=== PATIENT | male | born 1965 | race African-American/Black ===

== ENCOUNTER 2023-10-11 13:28 | Outpatient (AMB) | payer MEDICAID, SELFPAY ==
--- NOTE | 2023-10-11 13:39 | HO.NEPHOV ---
HPI HPI Comments History of Present Illness Details I had the privilege of seeing Yimi in consultation for his chronic kidney disease and hypertension. He is known to be hypertensive for a long time and had been on multiple various blood pressure lowering medications.He had been on lisinopril in the past which was discontinued due to reasons unclear to him. He has history of intermittent cocaine use, sometimes in binge, last being 3 months ago. Recently serum creatinine was found to be 1.66. He is not a diabetic. he denies any history of coronary artery disease, congestive heart failure, CVA, carotid stenosis, peripheral arterial disease, renal artery stenosis or any other systemic complaints. He used to take nonsteroidals in the past but has not taken any for a long time. He denies epistaxis, photosensitivity, skin rashes, joint swellings, hematuria, frequency or pedal edema. He claims to be compliant with his blood pressure lowering medications. He has dyslipidemia and is on statins. He does not have any muscle pain or any history of rhabdomyolysis. He he denied any other intravenous drug use, history of hepatitis or HIV. He denied any history of retinopathy or proteinuria. [facility] Medical History (Updated 10/11/23 @ 14:14 by Trevor Samson MD) Chronic kidney disease, stage 4 (severe) Hypertension Surgical History (Updated 10/11/23 @ 13:44 by Jocelynn Santos MA) History of eye surgery Family History (Updated 10/11/23 @ 13:45 by Jocelynn Santos MA) Father Hypertension Mother Cancer Social History (Updated 10/11/23 @ 13:44 by Jocelynn Santos MA) Alcohol intake: never Patient Tobacco Use Status: Former Tobacco user Vital Signs 10/11/23 13:40 Height 5 ft 10 in Weight 183 lb 6 oz BMI 26.3 BP 160/60 H Blood Pressure Location Lt brachial Position Sitting Pulse 86 Pulse Source Pulse Oximeter Pulse Oximetry (%) 97 Oxygen Delivery Method Room Air Physical Exam Vital Signs: Last Vital Signs Pulse 86 10/11/23 13:40 BP 160/60 H 10/11/23 13:40 Pulse Ox 97 10/11/23 13:40 Oxygen Delivery Method Room Air 10/11/23 13:40 BMI result Body Mass Index 26.3 Const General: comfortable and no acute distress Orientation/consciousness: patient oriented x3 HEENT Head: Yes normocephalic Mouth: Normal oral and palatal mucosa present Eyes EOM: EOMs intact bilaterally Neck Neck: Yes supple Resp Auscultation: clear to auscultation bilaterally Cardio Jugular venous distension: no JVD Rate: regular rate GI Palpation (GI): Soft to palpation Auscultation: normal bowel sounds General: Yes no CVA tenderness Back/Spine/Pelvis Back: no CVA tenderness Skin General skin exam: no rashes or lesions noted Neuro General: patient oriented x3 and moves all extremities Extrem General: Yes no pedal edema Assessment & Plan Assessment & Plan (1) CKD (chronic kidney disease) stage 3, GFR 30-59 ml/min: Code(s): N18.30 - Chronic kidney disease, stage 3 unspecified Qualifiers: Chronic kidney disease stage 3 subtype: stage 3a (GFR 45-59) Qualified Code(s): N18.31 - Chronic kidney disease, stage 3a (2) Hypertension: Code(s): I10 - Essential (primary) hypertension Qualifiers: Hypertension type: primary hypertension Qualified Code(s): I10 - Essential (primary) hypertension Plan Yimi has CKD stage 3 most likely due to longstanding hypertension and his long history of intermittent cocaine use( sometimes in binge). He might have had mild recurrent ROBIN from cocaine use with resultant drop in GFR. He has not known to have any proteinuria. Looking back in her records his serum creatinine had been high for some time and is currently stable. He was on ALBERT inhibitor which was discontinued and was initiated on nifedipine by other physicians. I have ordered imaging studies and further workup. He should abstain from cocaine. I will consider putting him back on angiotensin receptor john with time. His blood pressure needs to be maintain a goal. I have also ordered ANCA given history of cocaine use. All these have been discussed in detail. Further management is pending evolving data. All questions answered. Follow-up given Orders: Orders Calcium 10/11/23 I10 - Essential (primary) hypertension, N18.30 - Chronic kidney disease, stage 3 unspecified Vitamin D 25-OH Total 10/11/23 I10 - Essential (primary) hypertension, N18.30 - Chronic kidney disease, stage 3 unspecified Parathyroid Hormone Intact 10/11/23 I10 - Essential (primary) hypertension, N18.30 - Chronic kidney disease, stage 3 unspecified Neutrophil Cytoplasma Ab 10/11/23 I10 - Essential (primary) hypertension, N18.30 - Chronic kidney disease, stage 3 unspecified Myeloperoxidase Antibody 10/11/23 I10 - Essential (primary) hypertension, N18.30 - Chronic kidney disease, stage 3 unspecified Proteinase 3 PR3 Antibodies 10/11/23 I10 - Essential (primary) hypertension, N18.30 - Chronic kidney disease, stage 3 unspecified Complement C3 10/11/23 I10 - Essential (primary) hypertension, N18.30 - Chronic kidney disease, stage 3 unspecified Phospholipase A2 Receptor Pnl 10/11/23 I10 - Essential (primary) hypertension, N18.30 - Chronic kidney disease, stage 3 unspecified Prothrombin Time INR 10/11/23 I10 - Essential (primary) hypertension, N18.30 - Chronic kidney disease, stage 3 unspecified Hepatitis B Surface Antigen 10/11/23 I10 - Essential (primary) hypertension, N18.30 - Chronic kidney disease, stage 3 unspecified Hepatitis B Core Antibody 10/11/23 I10 - Essential (primary) hypertension, N18.30 - Chronic kidney disease, stage 3 unspecified Hepatitis C Antibody Reflex 10/11/23 I10 - Essential (primary) hypertension, N18.30 - Chronic kidney disease, stage 3 unspecified Electrolytes 10/11/23 I10 - Essential (primary) hypertension, N18.30 - Chronic kidney disease, stage 3 unspecified Phosphorus 10/11/23 I10 - Essential (primary) hypertension, N18.30 - Chronic kidney disease, stage 3 unspecified MYRA Reflex Titer and Pattern 10/11/23 I10 - Essential (primary) hypertension, N18.30 - Chronic kidney disease, stage 3 unspecified Anti DNA DS Antibody 10/11/23 I10 - Essential (primary) hypertension, N18.30 - Chronic kidney disease, stage 3 unspecified Anti Glomerular Basement Memb 10/11/23 I10 - Essential (primary) hypertension, N18.30 - Chronic kidney disease, stage 3 unspecified Complement C4 10/11/23 I10 - Essential (primary) hypertension, N18.30 - Chronic kidney disease, stage 3 unspecified Immunofixation Pnl, Serum 10/11/23 I10 - Essential (primary) hypertension, N18.30 - Chronic kidney disease, stage 3 unspecified Complete Blood Count Auto Diff 10/11/23 I10 - Essential (primary) hypertension, N18.30 - Chronic kidney disease, stage 3 unspecified Hepatitis B Surface Antibody 10/11/23 I10 - Essential (primary) hypertension, N18.30 - Chronic kidney disease, stage 3 unspecified Blood Urea Nitrogen 10/11/23 I10 - Essential (primary) hypertension, N18.30 - Chronic kidney disease, stage 3 unspecified Creatinine 10/11/23 I10 - Essential (primary) hypertension, N18.30 - Chronic kidney disease, stage 3 unspecified US renal BI 10/11/23 I10 - Essential (primary) hypertension, N18.30 - Chronic kidney disease, stage 3 unspecified Coding Level of Care Code New Pt Level 4 (32057) Diagnoses Stage 3a chronic kidney disease N18.31 Chronic kidney disease stage 3 subtype: stage 3a (GFR 45-59) Primary hypertension I10 Hypertension type: primary hypertension Results Reviewed Nephrology Results: No Data to Display
[2023-10-11 13:40] VITALS: BP 160/60; PULSE 86; O2SAT 97; BMI 26.3
== END 2023-10-11 14:19 | disposition home or self-care (01) ==
PROVIDERS: PCP Nurse Practitioner Family; Visit Provider Internal Medicine Nephrology
DX: N18.31 Chronic kidney disease, stage 3a (principal); I10 Essential (primary) hypertension
CPT/HCPCS: 99204

== ENCOUNTER → 2023-10-11 13:28 | Outpatient (BNVA) | payer MEDICAID, SELFPAY | PROVIDERS: PCP Nurse Practitioner Family; Visit Provider Internal Medicine Nephrology | DX: I12.9 Hypertensive chronic kidney disease with stage 1 through stage 4 chronic kidney disease, or unspecified chronic kidney disease (principal); N18.31 Chronic kidney disease, stage 3a; F14.90 Cocaine use, unspecified, uncomplicated | CPT/HCPCS: 99202 ==

== ENCOUNTER 2023-11-06 09:30 | Outpatient (REF) | payer MEDICAID, SELFPAY ==
[2023-11-06 12:38] LABS: MANUAL DIFF FLAG NO
[2023-11-06 12:46] LABS: Basophils Percent Auto 0.6 % (0-2); Eosinophils Absolute Auto 0.3 X10*3/uL (0.0-0.4); Eosinophils Percent Auto 4.3 % (0-4); Hematocrit 41.6 % (42.0-52.0); Imm Gran Abs Auto 0.01 X10*3/uL (0.00-0.03); Imm Gran Pct Auto 0.1 % (0.0-0.4); Lymphocytes Absolute Auto 2.6 X10*3/uL (1.2-4.9); Lymphocytes Percent Auto 37.4 % (20-40); Mean Corpuscular HGB Conc 33.7 g/dl (31.0-36.0); Mean Corpuscular Hemoglobin 27.7 pg (27.0-33.0); Mean Corpuscular Volume 82.4 fL (80.0-98.0); Mean Platelet Volume 9.5 fL (9.4-12.4); Monocytes Absolute Auto 0.6 X10*3/uL (0.1-1.2); Monocytes Percent Auto 7.8 % (2-11); Neutrophils Absolute Auto 3.5 x10*3/uL (2.0-8.3); Neutrophils Percent Auto 49.8 % (45-73); Platelet Count 336 X10*3/uL (160-400); Red Blood Count 5.05 X10*6/uL (4.60-5.80); Red Cell Distribution Width 14.8 % (11.0-16.0); White Blood Count 7.1 X10*3/uL (4.8-10.8)
[2023-11-06 12:57] LABS: INTERNATIONAL NORM RATIO 0.9 (0.9-1.1); Prothrombin Time 11.2 SEC (11.1-13.3)
[2023-11-06 15:52] LABS: Anion Gap 12 (12-20); Blood Urea Nitrogen 14 mg/dL (9-16); Calcium 9.9 mg/dL (8.4-10.2); Carbon Dioxide 28 mmol/L (22-29); Chloride 104 mmol/L (96-108); Estimated Glomerular Filt Rate 43; Phosphorus 2.6 mg/dL (2.7-4.5); Potassium 3.8 mmol/L (3.3-5.1); Sodium 140 mmol/L (135-145)
[2023-11-06 16:10] LABS: Vitamin D 25-OH Total 14.1 ng/mL (>30)
[2023-11-07 05:43] LABS: Parathyroid Hormone Intact 82.4 pg/mL (8.7-77.1)
[2023-11-07 08:26] LABS: HBS Num1 0.02 mIU/mL (0-7.99); HBsAGNum1 0.43 S/CO (0.00-0.99); Hepatitis B Core Antibody Nonreactive (Nonreactive); Hepatitis B Surface Antigen Negative (Negative); ~HepC Num1 0.18 S/CO (0.00-0.79); ~Hepatitis B Surface Antibody NONREACTIVE (Nonreactive); ~Hepatitis C Antibody Nonreactive (Nonreactive)
[2023-11-07 16:30] LABS: Complement C3 158 mg/dL (82-185)
[2023-11-08 12:58] LABS: Anti DNA DS Antibody <1 IU/mL; Anti Glomerular Basement Memb <1.0 AI; Myeloperoxidase Antibody <1.0 AI; Proteinase 3 PR3 Antibodies <1.0 AI
[2023-11-09 08:24] LABS: IgA <5 mg/dL (47-310); IgG 1852 mg/dL (600-1640); IgM 114 mg/dL (50-300)
[2023-11-12 15:53] LABS: Neutrophil Cyto Ab Screen NEGATIVE (NEGATIVE)
[2023-11-14 08:33] LABS: Anti Nuclear Antibody Screen NEGATIVE (NEGATIVE)
[2023-11-15 21:58] LABS: Phospholipase A2 IgG ELISA <4 RU/mL; Phospholipase A2 IgG IFA NEGATIVE (NEGATIVE)
== END 2023-11-06 09:31 | disposition home or self-care (01) ==
LOC: HO.HKASLDS 09:30
PROVIDERS: Visit Provider Internal Medicine Nephrology
DX: I12.9 Hypertensive chronic kidney disease with stage 1 through stage 4 chronic kidney disease, or unspecified chronic kidney disease (principal); N18.30 Chronic kidney disease, stage 3 unspecified
CPT/HCPCS: 36415; 80051; 82306; 82310; 82565; 82784; 83520; 83970; 84100; 84520; 85025; 85610; 86021; 86036; 86038; 86160; 86225; 86255; 86334; 86704; 86706; 86803; 87340

== ENCOUNTER 2023-11-07 13:08 | Outpatient (REF) | payer MEDICAID, SELFPAY ==
[2023-11-08 04:41] LABS: HBS Num1 0.25 mIU/mL (0-7.99); HBc Num1 0.09 S/CO (0.00-0.79); HBsAGNum1 0.45 S/CO (0.00-0.99); Hepatitis B Core Antibody Nonreactive (Nonreactive); Hepatitis B Surface Antigen Negative (Negative); ~HepC Num1 0.16 S/CO (0.00-0.79); ~Hepatitis B Surface Antibody NONREACTIVE (Nonreactive); ~Hepatitis C Antibody Nonreactive (Nonreactive)
== END 2023-11-07 13:09 | disposition home or self-care (01) ==
LOC: HO.HKASLDS 13:08
PROVIDERS: Visit Provider Internal Medicine Nephrology
DX: I12.9 Hypertensive chronic kidney disease with stage 1 through stage 4 chronic kidney disease, or unspecified chronic kidney disease (principal); N18.30 Chronic kidney disease, stage 3 unspecified
CPT/HCPCS: 36415; 86704; 86706; 86803; 87340

== ENCOUNTER 2023-11-07 13:39 | Outpatient (REF) | payer MEDICAID, SELFPAY ==
--- NOTE | ~2023-11-07 | US_ITS ---
EXAMINATION: US RETROPERITONEAL LIMITED (RENAL ONLY) CLINICAL INFORMATION: CKG stage III. COMPARISON: None available. TECHNIQUE: Ultrasound of the kidneys was performed. FINDINGS: RIGHT KIDNEY: 11.2 x 5.8 x 5.9 cm (SAG x AP x TRV) for a volume of 203 mL. The kidney is normal in size, contour, and echogenicity. Renal cortical thickness is normal. No calculi or focal parenchymal lesions. No hydronephrosis. LEFT KIDNEY: 11.0 x 4.3 x 4.8 cm (SAG x AP x TRV) for a volume of 119 mL. The kidney is normal in size, contour, and echogenicity. Renal cortical thickness is normal. No calculi or focal parenchymal lesions. No hydronephrosis. US/US renal BI IMPRESSION: Normal-appearing kidneys, although the left appears of smaller volume when compared to the right.
== END 2023-11-07 13:40 | disposition home or self-care (01) ==
LOC: HO.HMGCX 13:39
PROVIDERS: PCP Nurse Practitioner Family; Visit Provider Internal Medicine Nephrology
DX: I12.9 Hypertensive chronic kidney disease with stage 1 through stage 4 chronic kidney disease, or unspecified chronic kidney disease (principal); N18.30 Chronic kidney disease, stage 3 unspecified
CPT/HCPCS: 36415; 76775; 86704; 86706; 86803; 87340

== ENCOUNTER → 2023-11-08 16:00 | Outpatient (BNVA) | payer MEDICAID, SELFPAY | PROVIDERS: PCP Nurse Practitioner Family; Visit Provider Internal Medicine Nephrology ==

== ENCOUNTER 2023-12-04 10:53 | Outpatient (AMB) | payer MEDICAID, SELFPAY ==
--- NOTE | 2023-12-04 11:05 | HO.NEPHOV ---
HPI HPI Comments History of Present Illness Details I had the privilege of seeing Yimi in follow up for his chronic kidney disease and hypertension. He is known to be hypertensive for a long time and had been on multiple various blood pressure lowering medications.He had been on lisinopril in the past which was discontinued due to reasons unclear to him. He has history of intermittent cocaine use, sometimes in binge. Recently serum creatinine was found to be 1.65. He is not a diabetic. he denies any history of coronary artery disease, congestive heart failure, CVA, carotid stenosis, peripheral arterial disease, renal artery stenosis or any other systemic complaints. He used to take nonsteroidals in the past but has not taken any for a long time. He denies epistaxis, photosensitivity, skin rashes, joint swellings, hematuria, frequency or pedal edema. He claims to be compliant with his blood pressure lowering medications. He has dyslipidemia and is on statins. He does not have any muscle pain or any history of rhabdomyolysis. He he denied any other intravenous drug use, history of hepatitis or HIV. He denied any history of retinopathy or proteinuria. [facility] Medical History (Updated 10/11/23 @ 14:14 by Trevor Samson MD) Chronic kidney disease, stage 4 (severe) Hypertension Surgical History History of eye surgery Family History Father Hypertension Mother Cancer Social History Alcohol intake: never Patient Tobacco Use Status: Former Tobacco user Vital Signs 12/04/23 11:06 Height 5 ft 10 in Weight 181 lb 8 oz BMI 26.0 BP 120/70 Blood Pressure Location Lt brachial Position Sitting Pulse 99 Pulse Source Pulse Oximeter Pulse Oximetry (%) 99 Oxygen Delivery Method Room Air Physical Exam Vital Signs: Last Vital Signs Pulse 99 12/04/23 11:06 BP 120/70 12/04/23 11:06 Pulse Ox 99 12/04/23 11:06 Oxygen Delivery Method Room Air 12/04/23 11:06 BMI result Body Mass Index 26.0 Const General: comfortable and no acute distress Orientation/consciousness: patient oriented x3 HEENT Head: Yes normocephalic Mouth: Normal oral and palatal mucosa present Eyes EOM: EOMs intact bilaterally Neck Neck: Yes supple Resp Auscultation: clear to auscultation bilaterally Cardio Jugular venous distension: no JVD Rate: regular rate GI Palpation (GI): Soft to palpation Auscultation: normal bowel sounds General: Yes no CVA tenderness Back/Spine/Pelvis Back: no CVA tenderness Skin General skin exam: no rashes or lesions noted Neuro General: patient oriented x3 and moves all extremities Extrem General: Yes no pedal edema Assessment & Plan Assessment & Plan (1) Hypertension: Code(s): I10 - Essential (primary) hypertension Qualifiers: Hypertension type: primary hypertension Qualified Code(s): I10 - Essential (primary) hypertension (2) CKD (chronic kidney disease) stage 3, GFR 30-59 ml/min: Code(s): N18.30 - Chronic kidney disease, stage 3 unspecified Qualifiers: Chronic kidney disease stage 3 subtype: stage 3a (GFR 45-59) Qualified Code(s): N18.31 - Chronic kidney disease, stage 3a [place] Geller has CKD stage 3 most likely due to longstanding hypertension and his long history of intermittent cocaine use( sometimes in binge). He might have had mild recurrent ROBIN from cocaine use with resultant drop in GFR. He also had mildly smaller left kidney compared to right - could be due to vascular disease. He has not known to have any proteinuria. Looking back in her records his serum creatinine had been high for some time and is currently stable. His IgG levels are high which is going to repeated this year. He should abstain from cocaine. I will consider putting him back on angiotensin receptor john with time. His blood pressure needs to be maintain a goal. All questions answered. Follow-up given Orders: Orders Creatinine Today I10 - Essential (primary) hypertension, N18.30 - Chronic kidney disease, stage 3 unspecified Electrolytes Today I10 - Essential (primary) hypertension, N18.30 - Chronic kidney disease, stage 3 unspecified Calcium Today I10 - Essential (primary) hypertension, N18.30 - Chronic kidney disease, stage 3 unspecified Blood Urea Nitrogen Today I10 - Essential (primary) hypertension, N18.30 - Chronic kidney disease, stage 3 unspecified Protein Creatinine Ratio, Ur Today I10 - Essential (primary) hypertension, N18.30 - Chronic kidney disease, stage 3 unspecified Coding Level of Care Code Est Pt Level 3 (99771) Diagnoses Primary hypertension I10 Hypertension type: primary hypertension Stage 3a chronic kidney disease N18.31 Chronic kidney disease stage 3 subtype: stage 3a (GFR 45-59) Results Reviewed Nephrology Results: Hgb 14.0 g/dl (14.0-18.0) 11/06/23 WBC 7.1 X10*3/uL (4.8-10.8) 11/06/23 Plt Count 336 X10*3/uL (160-400) 11/06/23 Sodium 140 mmol/L (135-145) 11/06/23 Potassium 3.8 mmol/L (3.3-5.1) 11/06/23 Chloride 104 mmol/L (96-108) 11/06/23 Carbon Dioxide 28 mmol/L (22-29) 11/06/23 BUN 14 mg/dL (9-16) 11/06/23 Creatinine 1.65 mg/dL (0.5-1.4) H 11/06/23 Calcium 9.9 mg/dL (8.4-10.2) 11/06/23 Phosphorus 2.6 mg/dL (2.7-4.5) L 11/06/23 PTH Intact 82.4 pg/mL (8.7-77.1) H 11/06/23 Renal US 11/07/23
[2023-12-04 11:06] VITALS: BP 120/70; PULSE 99; O2SAT 99; BMI 26.0
== END 2023-12-04 13:02 | disposition home or self-care (01) ==
PROVIDERS: PCP Nurse Practitioner Family; Referring Provider Nurse Practitioner Family; Visit Provider Internal Medicine Nephrology
DX: I10 Essential (primary) hypertension (principal); N18.31 Chronic kidney disease, stage 3a
CPT/HCPCS: 99213

== ENCOUNTER → 2023-12-04 10:53 | Outpatient (BNVA) | payer MEDICAID, SELFPAY | PROVIDERS: PCP Nurse Practitioner Family; Visit Provider Internal Medicine Nephrology | DX: I12.9 Hypertensive chronic kidney disease with stage 1 through stage 4 chronic kidney disease, or unspecified chronic kidney disease (principal); N18.31 Chronic kidney disease, stage 3a | CPT/HCPCS: 99212 ==